=== PATIENT | female | born 1990 | race Caucasian/White ===

== ENCOUNTER 2021-01-16 15:03 | Emergency (ER) | payer MEDICAID ==
[~2021-01-16] VITALS: Ht 162.6 cm; Wt 65.9 kg
[2021-01-16 15:37] VITALS: BP 130/96; PULSE 71; TEMP 97.9
[2021-01-16] MEDS ORDERED: ATIVAN 0.50.5 MG/TAB (15:46)
[2021-01-16] MEDS ORDERED: BUSPAR5 MG PO (15:47)
[2021-01-16] MEDS ORDERED: CELEXA10 MG (15:47)
[2021-01-16] MEDS ORDERED: SEROQUEL300 MG (15:47)
[2021-01-16] MEDS ORDERED: INGREZZA40 MG (15:47)
[2021-01-16] MEDS ORDERED: CATAPRES 0.1MG0.1 MG PO (17:01)
== END 2021-01-16 17:09 | disposition home or self-care (01) ==
LOC: COL.ER 15:03
DX: F11.10 Opioid abuse, uncomplicated (principal); F31.9 Bipolar disorder, unspecified; F43.10 Post-traumatic stress disorder, unspecified; F17.210 Nicotine dependence, cigarettes, uncomplicated